=== PATIENT | female | born 1990 | race Caucasian/White ===

== ENCOUNTER 2017-02-11 20:12 | Emergency (ER) | payer BC ==
[2017-02-11 20:55] LABS: Hematocrit 35 % (35-47); Hemoglobin 12.1 g/dl (12.0-16.0); Mean Corpuscular HGB Conc 35 g/dl (31-36); Mean Corpuscular Hemoglobin 30 pg (27-31); Mean Corpuscular Volume 87 fL (80-97); Mean Platelet Volume 8 um3 (7.4-10.4); Red Blood Count 4.02 10^6/ul (4.0-5.4); Red Cell Distribution Width 13 % (10.5-15); White Blood Count 5.6 10^3/ul (3.5-10.8)
--- NOTE | 2017-02-11 21:10 | ED ---
GI/ HPI - HPI Summary HPI Summary: 26F presents with excessive vaginal bleeding for past day. She states she gave to a full term child 10 months ago and since then has been breast feeding. She states she had two normal period and then didn't have a period for two months. She states that she has been bleeding for the past month but that since last night the bleeding has become more intense. She states she is soaking a supertampon every hour and that she has bleed through pants. She denies any fever. She denies any n/v/d/c. She denies any abdominal pain. She has never had history of abnormal vaginal bleeding. She works at the [employer]. No family or personal history of bleeding disorders. no lightheadedness or palpitations. - History of Current Complaint Chief Complaint: EDVaginalBleeding Time Seen by Provider: 02/11/17 20:27 Stated Complaint: HEAVY BLEEDING Pain Intensity: 4 - Allergy/Home Medications Allergies/Adverse Reactions: Allergies Allergy/AdvReac Type Severity Reaction Status Date / Time No Known Allergies Allergy Verified 02/11/17 20:17 PMH/Surg Hx/FS Hx/Imm Hx Endocrine/Hematology History: Denies: Hx Anticoagulant Therapy, Hx Blood Disorders Cardiovascular History: Denies: Hx Myocardial Infarction Infectious Disease History: No Infectious Disease History: Denies: Traveled Outside the [place] in Last 30 Days - Family History Known Family History: Negative: Blood Disorder - Social History Alcohol Use: Rare Substance Use Type: Reports: None Smoking Status (MU): Never Smoked Tobacco Review of Systems Negative: Fever Negative: Chest Pain Negative: Shortness Of Breath Positive: Other - vaignal bleeding. Negative: Abdominal Pain, Vomiting, Nausea All Other Systems Reviewed And Are Negative: Yes Physical Exam Triage Information Reviewed: Yes Vital Signs On Initial Exam: Initial Vitals Temp Pulse Resp BP Pulse Ox 98.3 F 63 16 131/85 98 02/11/17 20:18 02/11/17 20:18 02/11/17 20:18 02/11/17 20:18 02/11/17 20:18 Vital Signs Reviewed: Yes Appearance: Positive: Well-Appearing Skin: Positive: Warm, Dry Head/Face: Positive: Normal Head/Face Inspection Eyes: Positive: Normal, Conjunctiva Clear Respiratory/Lung Sounds: Positive: Clear to Auscultation, Breath Sounds Present Cardiovascular: Positive: Normal, RRR Abdomen Description: Positive: Nontender, Soft Bowel Sounds: Positive: Present Pelvic Exam: Positive: external exam normal, speculum exam normal, bimanual exam normal, no cerv. motion tender, blood - moderate Musculoskeletal: Positive: Normal Neurological: Positive: Normal Psychiatric: Positive: Normal - [place] Coma Scale Coma Scale Total: 15 Diagnostics - Vital Signs Vital Signs Temp Pulse Resp BP Pulse Ox 02/11/17 20:18 98.3 F 63 16 131/85 98 - Laboratory Lab Results: Lab Results 02/11/17 Range/Units 20:48 WBC 5.6 (3.5-10.8) 10^3/ul RBC 4.02 (4.0-5.4) 10^6/ul Hgb 12.1 (12.0-16.0) g/dl Hct 35 (35-47) % MCV 87 (80-97) fL MCH 30 (27-31) pg MCHC 35 (31-36) g/dl RDW 13 (10.5-15) % Plt Count 255 (150-450) 10^3/ul MPV 8 (7.4-10.4) um3 Neut % (Auto) 56.9 (38-83) % Lymph % (Auto) 32.4 (25-47) % Wheeler % (Auto) 7.6 (1-9) % Eos % (Auto) 2.2 (0-6) % Baso % (Auto) 0.9 (0-2) % Absolute Neuts (auto) 3.2 (1.5-7.7) 10^3/ul Absolute Lymphs (auto) 1.8 (1.0-4.8) 10^3/ul Absolute Monos (auto) 0.4 (0-0.8) 10^3/ul Absolute Eos (auto) 0.1 (0-0.6) 10^3/ul Absolute Basos (auto) 0 (0-0.2) 10^3/ul Absolute Nucleated RBC 0 10^3/ul Nucleated RBC % 0 Result Diagrams: 02/11/17 20:48 02/11/17 20:48 Lab Statement: Any lab studies that have been ordered have been reviewed, and results considered in the medical decision making process. GIGU Course/Dx - Course Course Of Treatment: 26F presents with excessive vaginal bleeding for past day. She states she gave to a full term child 10 months ago and since then has been breast feeding. She states she had two normal period and then didn't have a period for two months. She states that she has been bleeding for the past month but that since last night the bleeding has become more intense. She states she is soaking a supertampon every hour and that she has bleed through pants. She denies any fever. She denies any n/v/d/c. She denies any abdominal pain. She has never had history of abnormal vaginal bleeding. She works at the [employer]. No family or personal history of bleeding disorders. no lightheadedness or palpitations. on exam abdomen nontender. labs h/h normal. hcg normal. pelvic u/s shows thickened endometrium. vaginal exam moderate bleeding. no CMT. discussed could do OCP taper to stop bleeding but patient does not want to do this at this time. will follow up with wiring mechanic. patient understand and agrees with plan. - Diagnoses Differential Diagnoses - Female: Ectopic , , Other - dysfunctional uterine bleeding Provider Diagnoses: Excessive vaginal bleeding Discharge - Discharge Plan Condition: Good Disposition: HOME Patient Education Materials: Dysfunctional Uterine Bleeding (ED) Forms: *Work Release Referrals: [facility] [place] [facility]IAN REFERRAL [Outside] Vijaya Davison MD [Medical Doctor] - Additional Instructions: You need to follow up with obgyn to discuss control options Return to ED if develop any lightheadedness, palpitations from excess blood loss or any new or worsening symptoms
[2017-02-11 21:17] LABS: ALT 9 U/L (7-52); AST 14 U/L (13-39); Albumin 4.4 g/dL (3.2-5.2); Alkaline Phosphatase 45 U/L (34-104); Anion Gap 7 mmol/L (2-11); Blood Urea Nitrogen 9 mg/dL (6-24); CO2 Carbon Dioxide 26 mmol/L (22-32); Calcium 9.1 mg/dL (8.6-10.3); Chloride 104 mmol/L (101-111); EGFR African American 132.3 (>60); EGFR Non-African American 102.8 (>60); Globulin 2.2 g/dL (2-4); Glucose 95 mg/dL (70-100); Potassium 3.6 mmol/L (3.5-5.0); Sodium 137 mmol/L (133-145); Total Protein 6.6 g/dL (6.4-8.9)
--- NOTE | 2017-02-11 22:08 | RAD ---
INDICATION: Pelvic pain, excessive bleeding. COMPARISON: There are no prior studies available for comparison. TECHNIQUE: Multiple real-time transvaginal images of the pelvis were obtained. FINDINGS: The uterus is normal in size, shape and echogenicity. The uterus measured 8.6 x 5.1 x 5.8 cm. The endometrium is mildly heterogeneous and abnormally thickened measuring 2.3 cm in thickness. The ovaries are mildly prominent. The right ovary measured 3.3 x 2.3 x 4.3 cm. The left ovary measured 4.1 x 3.5 x 2.9 cm. There is vascular flow within both ovaries. There are multiple small bilateral follicular cysts. There is a small amount of free intraperineal fluid in the cul-de-sac. IMPRESSION: 1. HETEROGENEOUS ABNORMALLY THICKENED ENDOMETRIUM. CONSIDER GYNECOLOGY CONSULTATION AND FOLLOW-UP TRANSVAGINAL PELVIC ULTRASOUND IN 1-2 MONTHS TIME. 2. MILDLY ENLARGED OVARIES WITH MULTIPLE FOLLICULAR CYSTS SUGGESTING THE POSSIBILITY OF POLYCYSTIC OVARIAN DISEASE.
[2017-02-11 22:17] LABS: Urine Bacteria Absent (Absent); Urine Bilirubin Negative (Negative); Urine Glucose Negative (Negative); Urine Nitrite Negative (Negative)
[2017-02-11 22:45] VITALS: BP 129/79
[2017-02-12 07:05] LABS: Trichomonas Source Endocervical (Negative)
== END 2017-02-11 22:43 | disposition home or self-care (01) ==
LOC: ED 20:12
DX: N93.9 Abnormal uterine and vaginal bleeding, unspecified (principal)
CPT/HCPCS: 36415; 76830; 80053; 81003; 81015; 84702; 85025; 85610; 85730; 86900; 86901; 87480; 87491; 87510; 87591; 87660; 87661; 99283